=== PATIENT | male | born 1960 | race Caucasian/White ===

== ENCOUNTER → 2020-11-22 | Outpatient (CLI) | payer BC ==
[~2020-11-22] MED LIST: BENACAR; PERCOCET 325 MG1 TA6 PO
== END | disposition home or self-care (01) ==
LOC: COVID19 09:49
PROVIDERS: ATTEND Family Medicine
DX: Z20.822 Contact with and (suspected) exposure to COVID-19 (principal)

== ENCOUNTER → 2022-05-22 | Outpatient (CLI) | payer BC | END | disposition home or self-care (01) | LOC: ORTHO 00:44 | PROVIDERS: ATTEND Orthopaedic Surgery | DX: M17.0 Bilateral primary osteoarthritis of knee (principal); M25.761 Osteophyte, right knee; M25.762 Osteophyte, left knee ==